=== PATIENT | female | born 1970 | race Caucasian/White ===

== ENCOUNTER 2020-06-06 15:53 | Outpatient (CLI) | payer OTHER, BC, SELFPAY ==
--- NOTE | ~2020-06-06 | MM_ITS ---
EXAMINATION: MM screening [facility] BI w zaynab HISTORY: Screening TECHNIQUE: Craniocaudal and mediolateral oblique 3-D tomosynthesis images were obtained and synthetic 2-D images were generated. CAD analysis was submitted and interpreted. COMPARISON: Comparison to multiple prior studies sequentially, with oldest reviewed study dated 02/24. BREAST PARENCHYMAL COMPOSITION: There are scattered areas of fibroglandular density. FINDINGS: There is a benign radiolucent mass central aspect of the right breast. There is no evidence of suspicious mass, calcification, or architectural distortion to suggest malignancy in either breas t. There has been no suspicious interval change. IMPRESSION: 1. No mammographic evidence of malignancy. 2. Recommend routine screening mammography in one year. BI-RADS Category 2: Benign finding(s). Reviewed, dictated and finalized at location A.
== END 2020-06-06 15:54 | disposition home or self-care (01) ==
LOC: ANHIMG 15:57
PROVIDERS: PCP Internal Medicine; Visit Provider Internal Medicine
DX: Z12.31 Encounter for screening mammogram for malignant neoplasm of breast (principal)
CPT/HCPCS: 77063; 77067

== ENCOUNTER 2022-05-07 08:46 | Outpatient (CLI) | payer OTHER, BC, SELFPAY ==
--- NOTE | ~2022-05-07 | MM_ITS ---
EXAMINATION: MM screening [facility] BI w zaynab HISTORY: Screening TECHNIQUE: Craniocaudal and mediolateral oblique 3-D tomosynthesis images were obtained and synthetic 2-D images were generated. CAD analysis was submitted and interpreted. COMPARISON: Comparison to multiple prior studies sequentially, with oldest reviewed study dated 10/03. BREAST PARENCHYMAL COMPOSITION: There are scattered areas of fibroglandular density. FINDINGS: There is no evidence of suspicious mass, calcification, or architectural distortion to sugg est malignancy in either breast. There has been no suspicious interval change. IMPRESSION: 1. No mammographic evidence of malignancy. 2. Recommend routine screening mammography in one year. BI-RADS Category 1: Negative Reviewed, dictated and finalized at location A.
== END 2022-05-07 08:47 | disposition home or self-care (01) ==
LOC: ANHIMG 08:48
PROVIDERS: PCP Internal Medicine; Visit Provider Internal Medicine
DX: Z12.31 Encounter for screening mammogram for malignant neoplasm of breast (principal)
CPT/HCPCS: 77063; 77067

== ENCOUNTER 2023-08-18 16:03 | Outpatient (CLI) | payer OTHER, BC, SELFPAY ==
--- NOTE | ~2023-08-18 | MM_ITS ---
EXAMINATION: MM screening [facility] BI w zaynab HISTORY: Screening mammogram TECHNIQUE: Craniocaudal and mediolateral oblique 3-D tomosynthesis images were obtained and synthetic 2-D images were generated. CAD analysis was submitted and interpreted. COMPARISON: 05/07/2022, 06/06/2020, 05/03/2018 BREAST PARENCHYMAL COMPOSITION:There are scattered areas of fibroglandular density. FINDINGS: Stable asymmetric densities in the right breast. No suspicious mass, calcification, or arch itectural distortion are identified in either breast to suggest malignancy. There has been no suspici ous interval change. IMPRESSION: No mammographic evidence of malignancy. Recommend routine screening mammography in one year. BI-RADS Category 2: Benign finding(s). Reviewed, dictated and finalized at location .
== END 2023-08-18 16:04 | disposition home or self-care (01) ==
PROVIDERS: PCP Internal Medicine; Visit Provider Internal Medicine
DX: Z12.31 Encounter for screening mammogram for malignant neoplasm of breast (principal)
CPT/HCPCS: 77063; 77067

== ENCOUNTER 2024-09-20 15:53 | Outpatient (CLI) | payer OTHER, BC, SELFPAY ==
--- NOTE | ~2024-09-20 | MM_ITS ---
EXAMINATION: MM screening [facility] BI w zaynab HISTORY: Screening mammogram TECHNIQUE: Craniocaudal and mediolateral oblique 3-D tomosynthesis images were obtained and synthetic 2-D images were generated. CAD analysis was submitted and interpreted. COMPARISON: 08/08/2023, 05/07/2022, 06/06/2020 BREAST PARENCHYMAL COMPOSITION:Not Dense. There are scattered areas of fibroglandular density. FINDINGS: Stable right breast mass. No suspicious mass, calcification, or architectural distortion ar e identified in either breast to suggest malignancy. There has been no suspicious interval change. IMPRESSION: No mammographic evidence of malignancy. Recommend routine screening mammography in one year. BI-RADS Category 2: Benign finding(s). Reviewed, dictated and finalized at location . OR RESEARCH ASSOCIATE
== END 2024-09-20 15:54 | disposition home or self-care (01) ==
LOC: ANHIMG 15:55
PROVIDERS: PCP Internal Medicine; Visit Provider Internal Medicine
DX: Z12.31 Encounter for screening mammogram for malignant neoplasm of breast (principal)
CPT/HCPCS: 77063; 77067

== ENCOUNTER 2025-10-24 15:55 | Outpatient (CLI) | payer OTHER, BC, SELFPAY ==
--- NOTE | ~2025-10-24 | MM_ITS ---
EXAMINATION: MM screening [facility] BI w zaynab HISTORY: Screening. TECHNIQUE: Craniocaudal and mediolateral oblique 3-D tomosynthesis images were obtained and synthetic 2-D images were generated. CAD analysis was submitted and interpreted. COMPARISON: 2023, 2022, and 2021 BREAST PARENCHYMAL COMPOSITION: Not Dense: There are scattered areas of fibroglandular tissue. FINDINGS: No suspicious masses are seen. There are no suspicious calcifications. No unexplained architectural distortion is seen. There are no skin or nipple abnormalities identified. There is no adenopathy seen on the images submitted. IMPRESSION: No mammographic evidence to suggest malignancy is seen. The patient may return to screening mammography as per ACR guidelines. BI-RADS 1 - Negative. Reviewed, dictated and finalized at location C. F INFORMATION SECURITY OFFICER
--- OUTSIDE RECORDS SUMMARY | 2025-10-24 15:59 | XMS_ITS | Encounter Summary ---
Author Organization [facility] Address [address] [place] [id number] Care Team Providers Care Clerical Specialist Name Role Phone Jordan Edgar MD Primary Care Provider [phone] Reason for Visit * Reason Onset Date Comments Lab Order 10/23/2025 Encounter Details Date Type Department Care Team (Late st Contact Info) Description 10/23/2025 Telephone [facility] Family & Internal Medicine [facility] [address] [place] [address] Jordan Edgar MD [facility] [place], [place] [id number] Lab Order Social History Tobacco Use Types Packs/Day Years Used Date Smoking Tobacco: Never Smokeless Tobacco: Never Alcohol Use Standard Drinks/Week Comments Not Currently 0 (1 standard drink = 0.6 oz pur e alcohol) PHQ-2 Answer Date Recorded Patient Health Questionnaire-2 Score 0 05/03/2025 Comments No Sex and Gender Information Value Date Recorded Sex Assigned at Female 05/03/2025 9:06 AM CDT Legal Sex Female 8:31 PM CDT Gender Identity Not on file Sexual Orientation Not on file documented as of this encounter Progress Notes * Birgit Damon MA - 10/23/2025 2:21 PM CSTAddended by: BIRGIT DAMON on: 10/23/2025 02:21 PM Modules accepted: Orders TRICAL ENGINEERING DRAFTSPERSON * Birgit Damon MA - 10/23/2025 2:21 PM CST Orders at desk clerks supervisor for strip picker. Pt informed and v/u. TRICAL ENGINEERING DRAFTSPERSON * Jordan Edgar MD - 10/23/2025 1:03 PM CST 6 month DM labs TRICAL ENGINEERING DRAFTSPERSON * Leslie Ramirez - 10/23/2025 7:50 AM CST Patient is wanting to get labs done before next appointment but I don't see labs entered in. She iswanting to go to [facility] and said she will strip picker the print out up front whenever they're ready. TRICAL ENGINEERING DRAFTSPERSON documented in this encounter Plan of Treatment Upcoming Encounters Date Type Department Care Team (Late st Contact Info) Description 10/30/2025 8:00 AM ELECTRICAL ENGINEERING DRAFTSPERSON Office Visit [facility] Family & Internal Medicine [address] [phone] Jordan Edgar MD [address] [phone] Scheduled Orders Name Type Priority Associated Diagnoses Orde r Schedule LIPID PANEL Lab Routine Type 2 diabetes mellitus without complication, without long-term current use of insulin ([facility]) Expected: 10/23/2025, Expires: 10/23/2026 COMPREHENSIVE METABOLIC PANEL Lab Routine Type 2 diabetes mellitus without complication, without long-term current use of insulin ([facility]) Expected: 10/23/2025, Expires: 10/23/2026 CK (CPK) Lab Routine Type 2 diabetes mellitus without complication, without long-term current use of insulin ([facility]) Expected: 10/23/2025, Expires: 10/23/2026 HEMOGLOBIN, GLYCOSYLATED Lab Routine Type 2 diabetes mellitus without complication, without long-term current use of insulin ([facility]) Expected: 10/23/2025, Expires: 10/23/2026 documented as of this encounter Visit Diagnoses Diagnosis Type 2 diabetes mellitus without complication, without long-term current use of insulin ([facility])- Primary documented in this encounter Additional Health Concerns Assessment Noted Time PHQ-9 Depression Total Score: 0 09/09/20 22 10:42 AM ELECTRICAL ENGINEERING DRAFTSPERSON documented as of this encounter Care Teams Clerical Specialist Relationship Specialty Start Date End Date Jordan Edgar MD [address] [phone] PCP - General INTERNAL MEDICINE 12/31/20 documented as of this encounter
--- OUTSIDE RECORDS SUMMARY | 2025-10-24 15:59 | XMS_ITS | Clinical Summary ---
Author Organization [facility] Address [address] [place] [address] Care Team Providers Care First Aid Trainer Name Role Phone Jordan Edgar MD Primary Care Provider [phone] Allergies No known active allergies Medications fish oil 1000 MG Cap capsule Take 1 capsule (1,000 mg total) by mouth 2 (two) times daily. Active aspirin EC (ECOTRIN) 81 MG tablet Take 1 tablet (81 mg total) by mouth daily. Active multi vitamin/minerals tablet Take 1 tablet by mouth daily. Active Cholecalciferol (VITAMIN D) 50 MCG (1999 UT) Tab Take by mouth daily. Active empagliflozin (JARDIANCE) 10 MG tabletIndications:T ype 2 diabetes mellitus without complication, without long-term current use of insulin ([facility]) Take 1 tablet (10 mg total) by mouth daily. 90 tablet 3 4 Active rosuvastatin (CRESTOR) 10 MG tabletIndications:M ixed hyperlipidemia TAKE 1 TABLET DAILY 90 tablet 3 4 Active metFORMIN (GLUCOPHAGE) 1000 MG tabletIndications:T ype 2 diabetes mellitus without complication, without long-term current use of insulin ([facility]) TAKE 1 TABLET TWICE A DAY 180 tablet 3 4 Active Active Problems Problem Noted Date Diagnosed Date Type 2 diabetes mellitus wit hout complication, without long-term current use of insulin 12/31/2020 Mixed hyperlipidemia 12/31/2020 Encounters Date Type Department Care Team Description 10/23/2025 Telephone [facility] Family & Internal Medicine [address] [phone] Jordan Edgar MD Lab Order from Last 3 Months Immunizations Immunization Administration Dates Next Due Influenza Adult (Generic) 08/16/2022 MODERNA COVID-19 (12+) MRNA, LNP-S, PF, 100 MCG/ 0.5 ML DOSE 12/15/2020 MODERNA COVID-19 (DIRECTOR ONCOLOGY JAVIER BYRON), MRNA, LNP-S, PF, 50 MCG/ 0.25 ML DOSE 09/20/2021 PFIZER COVID-19 BIVALENT (12 +) mRNA, LNP-S, PF, 30 MCG/0.3 ML DOSE 09/09/2022 Tdap (Adacel) 11/11/2023 Family History Medical History Relation Comments Diabetes Father Diabetes Mother Heart Disease Mother Kidney Disease Mother Stroke Mother Relation Status Comments Father Alive Mother Alive Social History Tobacco Use Types Packs/Day Years Used Date Smoking Tobacco: Never Smokeless Tobacco: Never Tobacco Cessation:Counseling Given: Not Answered Alcohol Use Standard Drinks/Week Comments Not Currently 0 (1 standard drink = 0.6 oz pur e alcohol) PHQ-2 Answer Date Recorded Patient Health Questionnaire-2 Score 0 05/03/2025 Comments No Sex and Gender Information Value Date Recorded Sex Assigned at Female 05/03/2025 9:06 AM CDT Legal Sex Female 8:31 PM CDT Gender Identity Not on file Sexual Orientation Not on file Last Filed Vital Signs Vital Sign Reading Time Taken Comments Blood Pressure 130/86 05/03/2025 9:07 AM CDT Pulse 81 05/03/2025 9:07 AM CDT Temperature 36.7 C (98.1 F) 05/03/2025 9:07 AM CDT Respiratory Rate 16 05/03/2025 9:07 AM CDT Oxygen Saturation 96% 05/03/2025 9:07 AM CDT Inhaled Oxygen Concentration - - Weight 89.7 kg (197 lb 12.8 oz) 05/03/2025 9:07 AM CDT Height 177.8 cm (5' 10) 05/03/2025 9:07 AM CDT Body Mass Index 28.38 05/03/2025 9:07 AM CDT Plan of Treatment Upcoming Encounters Date Type Department Care Team (Late st Contact Info) Description 10/30/2025 8:00 AM HOUSEKEEPER/CUSTODIAN/LAUNDRY WORKER Office Visit [facility] Family & Internal Medicine - [place] [address] [place] [address] Jordan Edgar MD [address] [place] [phone] Health Maintenance Due Date Last Done Comments Cervical Cancer Screening Pap Smear (Age 30 to 64) Every 3 Years 1969 Annual Physical 01/24/1972 Hepatitis C 1987 Hepatitis B Vaccines (1 of 3 - 19+ 3-dose series) 01/24/1988 Cervical Cancer Screening Pap with HPV Testing (Age 30 to 64) Every 5 Years 1999 Cervical Cancer Screening with HPV 1999 COVID-19 Vaccine ( season) 2025 09/09/2022, 09/20/2021, 01/12/2021, Additional history exists Influenza Adult (#1) 2025 08/16/2022 Hemoglobin A1C 10/26/2025 04/26/2025, 08/04, 05/23/2024, Additional history exists Kidney Health Evaluation 04/26/2026 04/26/2025 Lipid Panel 04/26/2026 04/26/2025, 05/03, 11/07/2023, Additional history exists Pneumococcal Vaccine: 50+ Years (1 of 2 - PCV) 05/03/2026 Postponed from 01/24/1988 (Patient Refused) Zoster Vaccines (1 of 2) 05/03/2026 Pos tponed from 2019 (Patient Refused) Mammogram Screening 09/20/2026 09/20/2024, Diabetes: Retinopathy Eye Exam 05/22/2027 05/22/2025, 05/06/2024 Colorectal Cancer Screening FIT-DNA (3 Years) 05/31/2027 05/31/2024, 05/31/2024 DTaP, Tdap and Td Vaccines (2 - Td or Tdap) 11/11/2033 11/11/2023 Colorectal Cancer Screening Colonoscopy (10 Years) Discontinued 02/06/2009 PHQ-2 (Physician [place]) Completed 05/03/2025 Hepatitis A Vaccines Aged Out No long er eligible based on patient's age to complete this topic Meningococcal B Vaccine Aged Out No l onger eligible based on patient's age to complete this topic Meningococcal Vaccine Aged Out No juanis casey eligible based on patient's age to complete this topic RSV Immunizations Under 20 Months Aged Out No longer eligible based on patient's age to complete this topic Procedures Procedure Name Priority Date/Time Associated Diagnosis Comments DIABETIC RETINOPATHY EXAM (NEGATIVE)(SCAN ORDER) Routine 05/22/2025 LIPID PANEL Routine 04/26/2025 8:54 AM CDT Type 2 diabetes mellitus without complication, without long-term current use of insulin ([facility]) Mixed hyperlipidemia HEMOGLOBIN, GLYCOSYLATED Routine 04/26/2025 8:54 AM CDT Type 2 diabetes mellitus without complication, without long-term current use of insulin ([facility]) Mixed hyperlipidemia MAMMOGRAM GENERIC (SCAN ORDER) 09/20/2024 COLOGUARD (EXACT SCIENCE) Routine 05/31/2024 8:20 AM CDT Screening for colon cancer COLONOSCOPY GENERIC (SCAN ORDER) 02/06/2009 from Last 3 Months or Most Recently Relevant to Health Maintenance Results * DIABETIC RETINOPATHY EXAM (NEGATIVE) (05/22/2025) us [facility] Scanned SCANNING Final Resu lt [facility] * (ABNORMAL) HEMOGLOBIN, GLYCOSYLATED (04/26/2025 8:54 AM CDT) HGB A1C 6.6(H) 4.8 - 5.6 % [facility] 1 Comment: Prediabetes: 5.7 - 6.4 Diabetes: >6.4 Glycemic control for adults with diabetes: <7.0 04/26/2025 8:54 AM CDT 04/26/2025 Narrative [facility] - 04/27/2025 12:10 PM CDT Performed at: [address] [place] [id number] Soaking Pit Operator: Solitario Saldivar PhD, Phone: [phone] Jordan Edgar MD LABORATORY Final Result Performing Organization Address [facility] de Phone Number [facility] [address] [place] [address] [facility] 1 * LIPID PANEL (04/26/2025 8:54 AM CDT) CHOLESTEROL 162 100 - 199 mg/dL [facility] 1 TRIGLYCERIDES 120 0 - 149 mg/dL [facility] 1 HDL 64 >39 mg/dL [facility] 1 VLDL CALCULATION 21 5 - 40 mg/dL [facility] 1 LDL (CALCULATED) 77 0 - 99 mg/dL [facility] 1 04/26/2025 8:54 AM CDT 04/26/2025 Narrative [facility] - 04/27/2025 12:10 PM CDT Performed at: 01 - [address] [id number] Soaking Pit Operator: Solitario Saldivar PhD, Phone: [phone] Jordan Edgar MD LABORATORY Final Result Performing Organization Address [facility] de Phone Number [facility] [address] [place] [address] [facility] 1 * MAMMOGRAM GENERIC (SCAN ORDER) (09/20/2024) Anatomical Region Laterality Modality Other 09/20/2024 [facility] Scanned SCANNING Final Resu lt * COLOGUARD (EXACT SCIENCE) (05/31/2024 8:20 AM CDT) Pathologist [facility] COLOGUARD RESULT Negative Negative Prepared ResponseA [facility] (CLIA #:[id number]) Comment: NEGATIVE TEST RESULT. A negative Cologuard result indicates a low likelihood that a colorectal cancer (CRC) or advanced adenoma (adenomatous polyps with more advanced pre-malignant features) is present. The chance that a person with a negative Cologuard test has a colorectal cancer is less than 1 in 1500 (negative predictive value >99.9%) or has an advanced adenoma is less than 5.3% (negative predictive value 94.7%). These data are based on a prospective cross-sectional study of 10,000 individuals at average risk for colorectal cancer who were screened with both Cologuard and colonoscopy. (Pam Santoyo, N Engl J Med 2014;370(14):3587-3501) The normal value (reference range) for this assay is negative. COLOGUARD RE-SCREENING RECOMMENDATION: Periodic colorectal cancer screening is an important part of preventive healthcare for asymptomatic individuals at average risk for colorectal cancer. Following a negative Cologuard result, the [place] [employer] Society and U.S. Multi-Society Task Force screening guidelines recommend a Cologuard re-screening interval of 3 years. References: [place] [employer] Guideline for Colorectal Cancer Screening: https://www.cancer.org/cancer/spatn-ailyrw-ndknzn/aseekltkd-cnkgvkuxo-pmyqmqw/ac s-rec ommendations.html.; Arnol DK, Anh CAROLINA, Zander GalarzaK, Colorectal Cancer Screening: Recommendations for Physicians and Patients from the U.S. Multi-Society Task Force on Colorectal Cancer Screening , Am J Gastroenterology 2017; 112:7599-9281. TEST DESCRIPTION: Composite algorithmic analysis of stool DNA-biomarkers with hemoglobin immunoassay. Quantitative values of individual biomarkers are not reportable and are not associated with individual biomarker result reference ranges. Cologuard is intended for colorectal cancer screening of adults of either sex, 45 years or older, who are at average-risk for colorectal cancer (CRC). Cologuard has been approved for use by the U.S. FDA. The performance of Cologuard was established in a cross sectional study of average-risk adults aged 50-84. Cologuard performance in patients ages 45 to 49 years was estimated by sub-group analysis of near-age groups. Colonoscopies performed for a positive result may find as the most clinically significant lesion: colorectal cancer [4.0%], advanced adenoma (including sessile serrated polyps greater than or equal to 1cm diameter) [20%] or non- advanced adenoma [31%]; or no colorectal neoplasia [45%]. These estimates are derived from a prospective cross-sectional screening study of 10,000 individuals at average risk for colorectal cancer who were screened with both Cologuard and colonoscopy. (Imperiale T. et al, N Engl J Med 2014;370(14):0461-9884.) Cologuard may produce a false negative or false positive result (no colorectal cancer or precancerous polyp present at colonoscopy follow up). A negative Cologuard test result does not guarantee the absence of CRC or advanced adenoma (pre-cancer). The current Cologuard screening interval is every 3 years. ([place] [employer] and U.S. Multi-Society Task Force). Cologuard performance data in a 10,000 patient pivotal study using colonoscopy as the reference method can be accessed at the following location: www.[employer].com/results. Additional description of the Cologuard test process, warnings and precautions can be found at www.cologuard.com. STOOL STOOL SPECIMEN / Unknown 05/31/2024 8:20 AM CDT 06/01/2024 1:52 PM CDT Jordan Edgar MD BODY FLUIDS AND STOOLS ORDERAB LES Final Result Performing Organization Address City/State/[facility] Co de Phone Number [facility] ([address]) [address] [place] [address], [facility] (CLIA #:[id number]) [address] [place] [place] [address] * COLONOSCOPY GENERIC (02/06/2009) 02/06/2009 [facility] Scanned SCANNING Final Resu lt from Last 3 Months or Most Recently Relevant to Health Maintenance Insurance [facility] Care Teams First Aid Trainer Relationship Specialty Start Date End Date Jordan Edgar MD [address] [place] [id number] PCP - General INTERNAL MEDICINE 12/31/20
== END 2025-10-24 15:56 | disposition home or self-care (01) ==
LOC: ANHFOHIMG 15:57
PROVIDERS: PCP Internal Medicine; Visit Provider Internal Medicine
DX: Z12.31 Encounter for screening mammogram for malignant neoplasm of breast (principal)
CPT/HCPCS: 77063; 77067